=== PATIENT | female | born 1965 | race Caucasian/White ===

== ENCOUNTER 2016-09-24 13:31 | Day surgery (SDC) | payer OTHER ==
[~2016-09-24] VITALS: Ht 162.6 cm; Wt 69.8 kg
[~2016-09-24 13:31] MED LIST: ASCO500C6 PO; CHOL10008 PO; Sodium Chloride LOK Flush 10 mL Syringe IV PRN; VIT1TABL83 PO; fentaNYL-PF 50 mCg/mL 2 mL Inj IVPUSH PRN
[2016-09-24 13:54] VITALS: BP 125/86; PULSE 89; RESP 16; O2SAT 97
[2016-09-24] MEDS ORDERED: MULT-1018 PO (13:55)
[2016-09-24] MEDS: 0.9% Sodium Chloride 1,000 ML IV SCH ×2 (14:02→14:59)
--- NOTE | 2016-09-24 15:44 | PCM.ENDCOL ---
Colonoscopy Date of Service: Sep 24, 2016 Physician Matt Chen MD Pre Procedure Diagnosis: Blood in the stool and diarrhea Post Procedure Dx & Findings: Blood in the stool with diarrhea resolved. Hemorrhoids normal anastomosis site. Fair prep Procedure Colonoscopy PROCEDURE IN DETAIL: Prep fair After unremarkable rectal examination the Olympus video colonoscope was inserted patient's anal canal and was advanced to cecum. Landmarks were identified including the ileocecal valve and appendiceal orifice. Scope was withdrawn systematically. Visualized colonic mucosa showed healthy shiny mucosa with normal healthy-appearing vasculature. An anastomosis site was visualized and appeared normal. In the rectum, the resection seem to have caused decrease in size of the rectum. It was attempted with the pediatric colonoscopy however we had to abort an use an upper endoscopy to successfully do the retroflexion. In the rectum retroflexion was done which showed hemorrhoids. Anal canal was inspected carefully on the way out and hemorrhoids noted. Impression Fair prep Normal anastomosis site Hemorrhoids Recommendation Repeat colonoscopy 2 years with a 2 day prep using yanez prep High-fiber diet Presedation Assessment Risks and Benefits Informed consent was obtained from the patient after all risks and benefits including but not limited to drug reaction, infection, pain, bleeding, perforation, as well as alternatives were discussed. Patient monitoring Continuous pulse oximetry, cardiac monitoring, blood pressure monitoring, IV access, and oxygen at 2L per nasal cannula. Periprocedural Fentanyl: Fentanyl 125mcg Incrementally Midazolam: Midazolam 6mg Incrementally Complications There were no periprocedural complications identified. Post Procedure Plan Post Procedure Recommendations 1. Restrict activities today. 2. Resume normal activities in the morning. 3. Resume medications. 4. Patient informed of normal post procedure side effects as bloating, drowsiness, blood streaking in the stool. 5. average risk CRCS. If colon polyps come back as: -Hyperplastic- can repeat colonoscopy in 10 years -Tubular adenoma- repeat colonoscopy in 5 years -Tubulovillous/villous adenoma- repeat colonoscopy in 3 years -If any dysplasia- return to clinic as soon as possible 6. Please don't hesitate to call me with any questions. Matt Chen MD Sep 24, 2016 15:44 Matt Chen MD Sep 24, 2016 15:44
[2016-09-24 15:45] VITALS: BP 111/70; PULSE 74; RESP 16; O2SAT 92
[2016-09-24 16:01] VITALS: BP 117/66; PULSE 69; RESP 14; O2SAT 97
== END 2016-09-24 23:59 | disposition home or self-care (01) ==
LOC: END 13:31
PROVIDERS: ATTEND Internal Medicine
DX: K64.9 Unspecified hemorrhoids (principal); R19.7 Diarrhea, unspecified; Z85.038 Personal history of other malignant neoplasm of large intestine; Z92.21 Personal history of antineoplastic chemotherapy; Z80.0 Family history of malignant neoplasm of digestive organs; Z80.3 Family history of malignant neoplasm of breast; Z80.41 Family history of malignant neoplasm of ovary; F17.210 Nicotine dependence, cigarettes, uncomplicated
CPT/HCPCS: 45378; 99153; G0500; J2250; J3010; J7030